=== PATIENT | male | born 1990 ===

== ENCOUNTER 2024-11-08 22:46 | Emergency (ER) | payer OTHER ==
[~2024-11-08] VITALS: Ht 162.5 cm; Wt 51.3 kg
[2024-11-08] MEDS ORDERED: NAPROXEN250 MG PO (23:36)
== END 2024-11-08 23:55 | disposition home or self-care (01) ==
LOC: ED 22:46
DX: S80.01XA Contusion of right knee, initial encounter (principal); W22.8XXA Striking against or struck by other objects, initial encounter; Y93.89 Activity, other specified; Y92.89 Other specified places as the place of occurrence of the external cause; Y99.8 Other external cause status